=== PATIENT | male | born 1980 | race Caucasian/White ===

== ENCOUNTER → 2019-03-06 | Outpatient (CLI) | payer OTHER ==
[~2019-03-06] VITALS: Ht 185.4 cm; Wt 85.3 kg
[~2019-03-06] MED LIST: GADOBUTROL 7.5 MMOL/7.5 ML (GADAVIST) VIAL IV ONE; IOHEXOL 240 MGI/ML 20 ML (OMNIPAQUE) VIAL IV ONE
--- NOTE | 2019-03-06 15:00 | Diagnostic Imaging Report ---
Skull. Indication: Metal check for MRI. A single Flynn' view is obtained. There are no prior studies available for comparison. There is no radiopaque foreign body overlying the orbits. The sinuses are generally clear. The osseous structures are intact. Impression: There is no evidence for radiopaque foreign body overlying the orbits. Dictated by: Dictated on workstation # [id number]
--- NOTE | 2019-03-06 22:19 | Diagnostic Imaging Report ---
EXAMINATION: Magnetic resonance imaging of the right shoulder with intra-articular contrast. DATE: March 06, 2019. COMPARISON: Right shoulder arthrogram March 06, 2019. HISTORY: 38-year-old male, right shoulder pain, weakness, decreased range of motion. TECHNIQUE: Magnetic Resonance Imaging sequences were performed of the shoulder following the intra-articular administration of contrast. FINDINGS: ROTATOR CUFF, LIGAMENTS, TENDONS, AND MUSCLES: The supraspinatus, infraspinatus, teres minor, and subscapularis tendons and muscles are intact. There is normal rotator cuff muscle bulk and signal. LONG HEAD OF BICEPS: The biceps labral attachment and long head of the biceps tendon is intact. The long head of the biceps tendon is normally positioned within the bicipital groove. GLENOHUMERAL JOINT: The humeral head is well positioned relative to the glenoid. The labrum is intact. There is no identified paralabral cyst. The articular cartilage is grossly intact. There is no intra-articular body or prominent synovitis. The anterior and posterior bands of the inferior glenohumeral ligament complex are intact. ACROMIOCLAVICULAR JOINT: The acromioclavicular joint is normally aligned. The coracoclavicular and coracoacromial ligaments are intact. There are no degenerative changes of the acromioclavicular joint. BONE: The bones all have normal configuration. The bone marrow signal is within normal limits. Specifically, negative for fracture, osteomyelitis, osteonecrosis, or marrow replacing process. BURSAE AND SOFT TISSUES: The bursae and soft tissue surrounding the shoulder are unremarkable. IMPRESSION: 1. Intact labrum. Additional glenohumeral joint assessment is unremarkable. 2. Intact rotator cuff. 3. Intact acromioclavicular joint. 4. No acute fracture, bone contusion, or other bone marrow signal abnormality. Dictated by: Dictated on workstation # [id number]
--- NOTE | 2019-03-06 23:02 | Diagnostic Imaging Report ---
Right shoulder arthrogram. INDICATION: Shoulder pain. There are no prior studies available for comparison. TECHNIQUE: Following aseptic preparation of skin and administration of local anesthesia, a 21-gauge needle was advanced into the glenohumeral joint using fluoroscopic guidance. A 15 cc mixture of 10 cc of Omnipaque-240, 10 cc of saline and 0.2 of Gadavist was infused. 0.7 seconds of fluoroscopy time was utilized. The patient tolerated the procedure well and was dismissed in good condition. IMPRESSION: There is no successful injection of the glenohumeral joint. MRI is pending for further study. Dictated by: Dictated on workstation # [id number]
== END ==
LOC: RAD 11:58
PROVIDERS: ATTEND Nurse Practitioner
DX: Z03.89 Encounter for observation for other suspected diseases and conditions ruled out (principal); M25.551 Pain in right hip
CPT/HCPCS: 23350; 70250; 73040; 73222

== ENCOUNTER 2020-11-08 05:31 | Outpatient (RCR) | payer SELFPAY ==
[~2020-11-08] VITALS: Ht 185.4 cm; Wt 78.0 kg
[2020-11-12] MEDS ORDERED: DOCU-143 PO (08:41)
== END 2020-11-08 12:40 | disposition home or self-care (01) ==
LOC: PREOP 05:31
PROVIDERS: ATTEND Surgery
DX: Z01.812 Encounter for preprocedural laboratory examination (principal); K62.5 Hemorrhage of anus and rectum; Z20.822 Contact with and (suspected) exposure to COVID-19
CPT/HCPCS: 87635

== ENCOUNTER 2020-11-12 07:29 | Day surgery (SDC) | payer BC, OTHER ==
[2020-11-12] VITALS (7 sets, daily range): BP systolic 98–124; BP diastolic 56–90
[~2020-11-12] VITALS: Ht 185.5 cm; Wt 78.0 kg
[2020-11-12] MEDS ORDERED: LACTATED RINGERS 1,000 ML IV STA (07:30)
[2020-11-12] MEDS ORDERED: LACTATED RINGERS 1,000 ML IV ONE (07:40)
[2020-11-12] MEDS ORDERED: MIDAZOLAM 2 MG/2 ML (VERSED) VIAL ONE (07:45)
[2020-11-12] MEDS ORDERED: PROPOFOL INJECTION 50 ML IV ONE ×2 (07:45→08:20)
--- NOTE | 2020-11-12 08:13 | Progress Note-Pre Operative ---
Pre-Operative Progress Note H&P Reviewed The H&P was reviewed, patient examined and no changes noted. Date Seen by Provider: Nov 12, 2020 Time Seen by Provider: 08:12 Date H&P Reviewed: Nov 12, 2020 Time H&P Reviewed: 08:12 Pre-Operative Diagnosis: bright red blood per rectum NORMA HANDLEY DO Nov 12, 2020 08:13
--- NOTE | 2020-11-12 08:38 | Progress Note-Post Operative ---
Post-Operative Progess Note Surgeon (s)/Mine Technician (s) Surgeon NORMA HANDLEY DO Mine Technician: na Pre-Operative Diagnosis bright red blood per rectum Post-Operative Diagnosis posterior anal fissure Procedure & Operative Findings Date of Procedure 11/12/20 Procedure Performed/Findings colonoscopy Anesthesia Type per housekeeping room attendant Estimated Blood Loss Estimated blood loss (mL): none Specimens/Packing Specimens Removed na NORMA HANDLEY DO Nov 12, 2020 08:38
[2020-11-12] MEDS ORDERED: DOCU-143 PO (08:41)
--- NOTE | 2020-11-12 08:42 | Discharge Inst-Simple/Standard ---
Discharge Inst-Standard Discharge Medications New, Converted or Re-Newed RX: Other (Over the counter stool softener.) Patient Instructions/Follow Up Plan of Care/Instructions/FU: 2weeks Ivette Activity as Tolerated: Yes Discharge Diet: Regular Diet (high fiber) NORMA HANDLEY DO Nov 12, 2020 08:42
--- NOTE | 2020-11-12 12:00 | Anesthesia-General Post-Op ---
MAC Patient Condition Mental Status/LOC: Same as Preop Cardiovascular: Satisfactory Nausea/Vomiting: Absent Respiratory: Satisfactory Pain: Controlled Complications: Absent Post Op Complications Complications None Follow Up Care/Instructions Patient Instructions None needed. Anesthesiology Discharge Order Discharge Order Patient is doing well, no complaints, stable vital signs, no apparent adverse anesthesia problems. No complications reported per nursing. SELENE LOWERY CRNA Nov 12, 2020 12:00
--- NOTE | 2020-11-12 12:22 | OPERATIVE REPORT ---
DATE OF SERVICE: 11/12/2020 PREOPERATIVE DIAGNOSIS: Bright red blood per rectum. POSTOPERATIVE DIAGNOSIS: Posterior anal fissure. PROCEDURE: Colonoscopy. SURGEON: Norma Steele DO ANESTHESIA: Per [place]. ESTIMATED BLOOD LOSS: None. COMPLICATIONS: None. INDICATIONS: The patient is a 40-year-old male who has been having bright red blood per rectum. His primary care provider wished him to have a colonoscopy. The patient was discussed risks and benefits of procedure and wished to proceed with procedure. Consent was signed in the chart. DESCRIPTION OF PROCEDURE: The patient was taken to the endoscopy suite, placed in left lateral recumbent position. Timeout was performed. Digital rectal exam was performed. A posterior anal fissure noted. No active bleeding. It was very shallow. Healing. No polyps, masses or any other ulcerations. Scope was inserted in the rectum and advanced all the way to cecum with minimal difficulty. Prep was adequate. Scope was then slowly retracted back. There were no polyps, masses or ulcerations within the cecum, ascending, transverse, descending and sigmoid colon. Once in the rectum, scope was retroflexed noting no other pathology. Scope was returned to its normal position, slowly withdrawn until completely removed. The patient tolerated procedure well without any complications, taken to recovery room in stable condition. RECOMMENDATIONS: The patient started on Colace 100 mg daily. Keep stools soft, increase water, increase fiber. The patient will follow up in two weeks for reexamination. Job ID: [id number] DocumentID: [id number] Dictated Date: 11/12/2020 08:45:13 Coal Trimmer Date: 11/12/2020 12:21:29 Dictated By: NORMA STEEEL DO
== END 2020-11-12 09:55 | disposition home or self-care (01) ==
LOC: ENDO 07:29
PROVIDERS: ATTEND Surgery
DX: K60.2 Anal fissure, unspecified (principal); F17.210 Nicotine dependence, cigarettes, uncomplicated; Z79.899 Other long term (current) drug therapy; Z83.3 Family history of diabetes mellitus; Z82.3 Family history of stroke; Z80.9 Family history of malignant neoplasm, unspecified

== ENCOUNTER 2021-02-08 07:33 | Emergency (ER) | payer BC ==
[~2021-02-08] VITALS: Ht 185.4 cm; Wt 78.1 kg
[~2021-02-08 07:33] MED LIST changes: +DOCU-143 PO; -GADOBUTROL 7.5 MMOL/7.5 ML (GADAVIST) VIAL IV ONE; -IOHEXOL 240 MGI/ML 20 ML (OMNIPAQUE) VIAL IV ONE
[2021-02-08] MEDS ORDERED: KETOROLAC 60 MG/2 ML VIAL IM ONE (09:00)
--- NOTE | 2021-02-08 09:01 | ED Lower Extremity ---
General Chief Complaint: Lower Extremity Stated Complaint: KNEE PAIN Nursing Triage Note: AMB TO ED WITH C/O KNEE PAIN HAS CHRONIC KNEE PAIN BENT DOWN AND FELT POP TODAY HAS NOT TAKEN PAIN MEDS Nursing Sepsis Screen: No Definite Risk Source: patient Exam Limitations: no limitations (LISSY BOWMAN) History of Present Illness Date Seen by Provider: February 08, 2021 Time Seen by Provider: 08:35 Initial Comments Pt presents to ED via private conveyance with complaints of R knee pain. He states it has been chronic since his 20's but has been getting worse over the past 9months until this morning at work, where he was standing up and his knee gave out. Complains of 7/10 pain around his whole knee, with worse pain/tenderness around the patella, anterior/posterior/medial parts of the knee. Significant family history on his mothers side; mother with 2x total knee replacements, 29yo sister with a single total knee replacement. Only able to bear a small amount of weight and walks with a limp. R knee with mild joint effusion, anterior laxity, exquisite tenderness to palpation/manipulation of the patella and anterior/posterior ligaments. Denies other symptoms of chest pain, SOB, N/V, fevers, chills. Location Injury Occurred: Work Onset: this morning Severity: severe Pain/Injury Location: right knee Method of Injury: other (while standing up from sitting, atraumatic) Modifying Factors: Improves With Movement (pain worse with movement and weight bearing), Improves With Pain Medication (Ibuprofen with minimal relief, did not take any today) (LISSY BOWMAN) Allergies and Home Medications Allergies Coded Allergies: No Known Drug Allergies (Unverified , 11/07/20) Home Medications Docusate Sodium 100 Mg Capsule, 100 MG PO DAILY Prescribed by: NORMA HANDLEY on 11/12/20 0841 Patient Home Medication List Home Medication List Reviewed: Yes (LISSY BOWMAN) Home Medication List Reviewed: Yes (MARITZA GUERRA) Review of Systems Constitutional: No chills, No fever EENTM: No hearing loss, No vision loss Respiratory: No cough, No short of breath Cardiovascular: No chest pain, No edema, No palpitations Gastrointestinal: No abdominal pain, No constipation, No diarrhea, No nausea, No vomiting Genitourinary: No dysuria, No frequency, No hematuria Musculoskeletal: No back pain; joint pain (severe 7/10 R knee), joint swelling (mild R knee) Skin: No change in color, No lesions, No rash Psychiatric/Neurological: Denies Headache; Numbness (dulled sensation to RLE); Denies Paresthesia, Denies Tingling (COLBYLISSY Chat Sports STUDENT) All Other Systems Reviewed Negative Unless Noted: Yes (COLBY,LISSY Chat Sports STUDENT) Past Pfxthfc-Hoywle-Qevghw Hx Patient Social History Alcohol Use: Occasionally Uses Number of Drinks Today: AA Alcohol Beverage of Choice: Rum Smoking Status: Current Everyday Smoker Type Used: Cigarettes (1/2 ppd, 25years) 2nd Hand Smoke Exposure: Yes Recent Infectious Disease Expo: No Recent Hopitalizations: No (COLBY,LISSY Chat Sports STUDENT) Seasonal Allergies Seasonal Allergies: No (COLBY,LISSY Chat Sports STUDENT) Past Medical History Surgeries: Yes Appendectomy Respiratory: Yes (SNORES) Cardiac: Yes Hypertension Neurological: Yes Concussion Genitourinary: No Gastrointestinal: No Musculoskeletal: No Endocrine: No HEENT: No Cancer: No Psychosocial: Yes Anxiety, Depression Integumentary: No Blood Disorders: No (COLBYLISSY Chat Sports STUDENT) Physical Exam Vital Signs Vital Signs - First Documented 02/08/21 07:50 Temp 37.1 Pulse 75 Resp 18 B/P (MAP) 115/73 (87) Pulse Ox 98 (MARI,MARITZA J) Vital Signs Capillary Refill : Less Than 3 Seconds (COLBYLISSY Chat Sports STUDENT) Height, Weight, BMI Height: 6'1.00" Weight: 188lbs. 0.0oz. 85.112879gi; 22.00 BMI Method: General Appearance: WD/WN, no apparent distress HEENT: PERRL/EOMI, normal ENT inspection Neck: non-tender, full range of motion, supple, normal inspection Cardiovascular: normal peripheral pulses, regular rate, rhythm, no edema, no murmur Respiratory: chest non-tender, lungs clear, normal breath sounds, no respiratory distress, no accessory muscle use Gastrointestinal: normal bowel sounds, non tender, soft Back: normal inspection, no CVA tenderness, no vertebral tenderness Hips: bilateral hip non-tender, bilateral hip normal inspection, bilateral hip normal range of motion, bilateral hip no evidence of injury Legs: bilateral leg non-tender, bilateral leg normal inspection, bilateral leg no evidence of injury Knees: right knee bone tenderness, right knee joint effusion (mild), right knee pain, right knee soft tissue tenderness Feet: bilateral foot non-tender, bilateral foot normal inspection, bilateral foot normal range of motion, bilateral foot no evidence of injury Reflexes: 2+ knee (R), 2+ knee (L); 1+ ankle (R), 1+ ankle (L) Neurologic/Tendon: normal motor functions, normal tendon functions, responds to pain, sensory deficit (numbness RLE), withdraws to pain Neurologic/Psychiatric: alert, normal mood/affect, oriented x 3 Skin: normal color, warm/dry Lymphatic: no adenopathy (LISSY BOWMAN MED STUDENT) Knees: right knee other (Laxity in his anterior drawer test as well as tenderness on loading the medial collateral ligament. There is a scant amount of joint effusion and significant tenderness to palpation of the right knee.) (MARITZA GUERRA) Procedures/Interventions Progress Right knee joint injection/aspiration. We are unable to aspirate anything from the joint space. Using a 25-gauge 1-1/2 inch needle and standard anterior medial approach we obtained access to the right knee joint space. The site was precleaned with iodine and chlorhexidine. We then infiltrated with 1 cc of 1% lidocaine, 1 cc of half percent Marcaine and 1 cc of Depo-Medrol 40 mg/mL. Patient tolerated the procedure well. A bandage was applied sterilely and no bleeding was noted. (MARITZA GUERRA) Progress/Results/Core Measures Results/Orders My Orders Orders - MARITZA GUERRA Ketorolac Injection (Toradol Injection) (02/08/21 09:00) Knee, Right, 3 Views (02/08/21 08:52) Lidocaine 1% Inj 20 Ml (Xylocaine 1% Inj (02/08/21 09:45) Bupivacaine 0.5% Injection (Sensorcaine (02/08/21 09:45) Methylprednisolone Acetate Inj (Depo-Med (02/08/21 09:45) (MARITZA GUERRA) Medications Given in ED Current Medications Medications Dose Ordered Sig/Guero Route Start Time Stop Time Status Last Admin Dose Admin Bupivacaine HCl 30 ml ONCE ONCE INJ 02/08/21 09:45 02/08/21 09:46 DC 02/08/21 09:58 30 ML Ketorolac Tromethamine 60 mg ONCE ONCE IM 02/08/21 09:00 02/08/21 09:01 DC 02/08/21 09:08 60 MG Lidocaine HCl 20 ml ONCE ONCE INJ 02/08/21 09:45 02/08/21 09:46 DC 02/08/21 09:57 20 ML Methylprednisolone Acetate 40 mg ONCE ONCE IA 02/08/21 09:45 02/08/21 09:46 DC 02/08/21 09:53 40 MG (MARITZA GUERRA) Vital Signs/I&O 02/08/21 07:50 Temp 37.1 Pulse 75 Resp 18 B/P (MAP) 115/73 (87) Pulse Ox 98 (MARITZA GUERRA) Blood Pressure Mean: 87 Progress Progress Note : Time: 09:26 Progress Note Toradol IM. We will do a joint aspiration if we get some fluid out and put in some steroid and lidocaine/ropivacaine. (MARITZA GUERRA) Diagnostic Imaging Diagonstic Imaging: Xray Plain Films/CT/US/NM/MRI: knee (r) Comments NAME: [facility] REC#: [id number] PT STATUS: REG ER : 1980 PHYSICIAN: MARITZA GUERRA MD ADMIT DATE: 02/08/21/ER Draft Date of Exam:02/08/21 KNEE, RIGHT, 3 VIEWS INDICATION: Knee pain FINDINGS: Three view right knee showed no fracture, dislocation or acute articular irregularity. No loose body. IMPRESSION: No acute appearing abnormality. Dictated on workstation # [id number] Dict: 02/08/21907 Trans: 02/08/21912 [facility] [id number] Interpreted by: WENDY WAGNER Electronically signed by: Reviewed: Reviewed by Me (MARITZA GUERRA) Departure Impression Primary Impression: Right knee pain Qualified Codes: M25.561 - Pain in right knee Disposition: 01 HOME, SELF-CARE Condition: Stable Departure-Patient Inst. Decision time for Depature: 10:00 (MARITZA GUERRA) Referrals: GARCÍA URIAS MD (PCP/Family) Primary Care Physician SY ERIC MD Patient Instructions: Knee Pain (DC) Add. Discharge Instructions: I suspect you may have ligamentous injury to your knee. Further work-up can be done through Dr. Eric's office. Physical therapy may be helpful. If you like to start on physical therapy you may call them and schedule appointment by calling [phone]. Compression wrap such as a neoprene knee sleeve or Tahir wrap can be helpful for pain. Keep the leg elevated and apply alternating ice and heat for the next couple days then just heat. Topical creams such as icy hot or Biofreeze can be helpful. Tylenol 1000 mg every 8 hours as necessary for pain. I suggest you use Aleve 2 tablets twice a day for the next 2 weeks on a scheduled basis to reduce inflammation and therefore pain in your knee. Alternatively instead of Aleve you could use ibuprofen 4 tablets 3 times a day for [address] ERIC for a follow-up appointment. The steroid should kick in in the next 12 to 24 hours and may have side effects of causing you to feel a little bit wired, full of energy and sometimes difficult to get sleep at night. The steroid should last about 5 to 7 days. All discharge instructions reviewed with patient and/or family. Voiced understanding. Work/School Note: Work Release Form Date Seen in the Emergency Department: February 08, 2021 Return to Work: February 10, 2021 Restrictions: Need Release from Doctor Other Restrictions Listed Below: No lifting greater than 40 pounds until 02/22/2021. Copy Copies To 1: SY ERIC MD, JOHNNY MED STUDENT February 08, 2021 09:01 MARITZA GUERRA February 08, 2021 09:30
--- NOTE | 2021-02-08 09:13 | Diagnostic Imaging Report ---
INDICATION: Knee pain FINDINGS: Three view right knee showed no fracture, dislocation or acute articular irregularity. No loose body. IMPRESSION: No acute appearing abnormality. Dictated by: Dictated on workstation # [id number]
[2021-02-08] MEDS ORDERED: LIDOCAINE 1% INJ 20 ML 20 ML VIAL INJ ONE (09:45)
[2021-02-08] MEDS ORDERED: BUPIVACAINE 0.5% 30 ML (SENSORCAINE) VIAL INJ ONE (09:45)
[2021-02-08] MEDS ORDERED: methylPREDNISolone 40 MG/ML (DEPO MEDROL) VIAL IA ONE (09:45)
[2021-02-08 10:18] VITALS: BP 115/73
== END 2021-02-08 10:18 | disposition home or self-care (01) ==
LOC: EDUNIT# 07:33 → ER 07:34
DX: M25.561 Pain in right knee (principal); I10 Essential (primary) hypertension; F17.210 Nicotine dependence, cigarettes, uncomplicated; Z87.820 Personal history of traumatic brain injury
CPT/HCPCS: 73562

== ENCOUNTER 2021-02-20 07:06 | Outpatient (CLI) | payer BC ==
[~2021-02-20] VITALS: Ht 185.5 cm; Wt 77.3 kg
[2021-02-20] MEDS ORDERED: TRAM50TA3 PO (11:10)
[2021-02-20] MEDS ORDERED: NAPR500T8 PO (11:10)
== END 2021-02-20 11:34 | disposition home or self-care (01) ==
LOC: PREOP 07:06
PROVIDERS: ATTEND Orthopaedic Surgery
DX: Z01.818 Encounter for other preprocedural examination (principal)

== ENCOUNTER 2021-02-26 09:01 | Day surgery (SDC) | payer BC ==
--- NOTE | 2021-02-20 11:39 | HISTORY AND PHYSICAL ---
DATE OF SERVICE: ADMISSION HISTORY AND PHYSICAL This will be for outpatient surgery on 02/26/2021 for right knee arthroscopy. HISTORY OF PRESENT ILLNESS: The patient is a 40-year-old gentleman with a several year history of right knee pain. He reports painful popping and catching symptoms as well as periodic swelling. He injured his knee recently when he was arising from a squatted position and had a loud painful pop followed by several smaller popping sensation. Since that time, he has had increased pain, swelling and popping. He has undergone treatment with injections with no improvement. Due to functional impairment and failure to improve with conservative measures, the patient elected to proceed with surgical intervention. REVIEW OF SYSTEMS: No chest pain, no shortness of breath, no dysuria. PAST MEDICAL HISTORY: Mitral valve prolapse, hypertension, coronary valve disease, arthritis. PAST SURGICAL HISTORY: Appendectomy, wisdom tooth extraction. FAMILY HISTORY: Cardiovascular disease, thyroid disorder. PRIMARY CARE PROVIDER: Dr. Do. MEDICATIONS: Aleve, Medrol Dosepak and gabapentin. ALLERGIES: No known drug allergies. SOCIAL HISTORY: The patient smokes half a pack of cigarettes a day. Drinks alcohol rarely. RADIOGRAPHS: Reveal no acute changes of the right knee. PHYSICAL EXAMINATION: GENERAL: The patient is well-developed, well-nourished, in no acute distress. HEENT: Normocephalic, atraumatic. Pupils are equal, round and reactive to light. Oropharynx is clear. NECK: Supple, with no lymphadenopathy. LUNGS: Clear to auscultation bilaterally. HEART: Regular rate and rhythm. ABDOMEN: Soft, nontender, nondistended. EXTREMITIES: The right knee demonstrates marked patellofemoral crepitus and pain with patellar loading. Range of motion is 0/0/135. Negative Gilles, negative anterior and posterior drawer. No varus or valgus laxity. Tenderness along his medial joint line and pain medially with Adela's with an audible click noted. IMPRESSION: Right knee medial meniscus tear with associated chondromalacia. PLAN: Right knee arthroscopy, partial medial meniscectomy and chondroplasty. The risks, benefits, options, ramifications and recovery were discussed at length with the patient. He understands and wishes to proceed. Job ID: [id number] DocumentID: [id number] Dictated Date: 02/20/2021 11:03:45 Drivers License Examiner Date: 02/20/2021 11:39:00 Dictated By: SY WHITE MD
[2021-02-26] VITALS (11 sets, daily range): BP systolic 111–140; BP diastolic 70–100
[~2021-02-26] VITALS: Ht 185.5 cm; Wt 77.3 kg
[~2021-02-26 09:01] MED LIST changes: +HYDROcodone/APAP 7.5 MG/325 MG (LORTAB, LORCET PLUS) TABLET PO PRN; +NAPR500T8 PO; +TRAM50TA3 PO
--- NOTE | 2021-02-26 09:12 | Progress Note-Pre Operative ---
Pre-Operative Progress Note H&P Reviewed The H&P was reviewed, patient examined and no changes noted. Date Seen by Provider: Feb 26, 2021 Time Seen by Provider: 09:12 Date H&P Reviewed: Feb 26, 2021 Time H&P Reviewed: 09:12 Pre-Operative Diagnosis: right knee medial meniscus tear and chondromalacia SY WHITE MD Feb 26, 2021 09:12
--- NOTE | 2021-02-26 09:13 | Progress Note-Post Operative ---
Post-Operative Progess Note Surgeon (s)/Pork Cutlet Maker (s) Surgeon SY WHITE MD Pork Cutlet Maker: Sandip Chiang Pre-Operative Diagnosis right knee medial meniscus tear and chondromalacia Post-Operative Diagnosis right knee medial meniscus tear and chondromalacia of the patella and medial femoral condyle Procedure & Operative Findings Date of Procedure 02/26/21 Procedure Performed/Findings right knee arthroscopic partial medial meniscectomy and chondroplasty of the patella and medial femoral condyle Anesthesia Type GETA Estimated Blood Loss Estimated blood loss (mL): minimal Specimens/Packing Specimens Removed none Packing: none SY WHITE MD Feb 26, 2021 09:13
[2021-02-26] MEDS ORDERED: LACTATED RINGERS 1,000 ML IV PRN (09:15)
[2021-02-26] MEDS ORDERED: ceFAZolin INJECTION 1,000 MG in WATER (STERILE) FOR INJECTION 10 ML IV ONE (09:15)
[2021-02-26] MEDS ORDERED: fentaNYL INJ 100 MCG/2 ML AMP ONE (09:34)
[2021-02-26] MEDS ORDERED: proPOfol 200 MG/20 ML (DIPRIVAN) VIAL IV ONE (09:34)
[2021-02-26] MEDS ORDERED: ONDANSETRON 4 MG/2 ML (SDV) Z0FRAN ONE (09:34)
[2021-02-26] MEDS ORDERED: MIDAZOLAM 2 MG/2 ML (VERSED) VIAL ONE (09:34)
[2021-02-26] MEDS ORDERED: LIDOCAINE PF 2% 5 ML (XYLOCAINE) VIAL ONE (09:34)
[2021-02-26] MEDS ORDERED: BUPIVACAINE 0.25% 30 ML (SENSORCAINE) VIAL ONE (09:36)
[2021-02-26] MEDS ORDERED: morphine PF (DURAMORPH) 10 MG/10 ML AMP ONE (09:36)
[2021-02-26] MEDS ORDERED: SEVOFLURANE (ULTANE) 15 ML INHAL SOLN ONE (10:55)
[2021-02-26] MEDS ORDERED: morphine INJ 10 MG/ML 1ML (SYR OR VIAL) IVP ONE (11:15)
[2021-02-26] MEDS ORDERED: ONDANSETRON 4 MG/2 ML (SDV) Z0FRAN IVP PRN (11:15)
[2021-02-26] MEDS ORDERED: PROMETHAZINE INJ 25 MG/ML (PHENERGAN) AMP IVP ONE (11:15)
[2021-02-26] MEDS ORDERED: HYDROmorphone 2 MG/ML VIAL (DILAUDID) IV ONE (11:15)
[2021-02-26] MEDS ORDERED: MEPERIDINE (DEMEROL) INJ 50 MG/ML IVP ONE (11:15)
--- NOTE | 2021-02-26 12:23 | Anesthesia-General Post-Op ---
General Patient Condition Mental Status/LOC: Same as Preop Cardiovascular: Satisfactory Nausea/Vomiting: Absent Respiratory: Satisfactory Pain: Controlled Complications: Absent Post Op Complications Complications None Follow Up Care/Instructions Patient Instructions None needed. Anesthesia/Patient Condition Patient Condition Patient is doing well, no complaints, stable vital signs, no apparent adverse anesthesia problems. No complications reported per nursing. PERNELL COX CRNA Feb 26, 2021 12:23
--- NOTE | 2021-02-26 12:36 | Physical Therapy Ortho Eval ---
PT Orthopedic Evaluation Type of Surgery Knee Scope (right) Prior Level of Function Current Living Status: Significant Other Locomotion (Upon Admit): Independent Established Durable Medical Eq: Crutches Subjective Subjective Agrees to PT. Post visit, reports he feels like he can do the exercises and use the crutches safely. Entry Into Home: Stairs With Railing Steps Into Home: 2 Motor Control Motor Control: Motor Control WNL ROM ROM: WFL Strength Strength: WFL Transfer SCALE: Activities may be completed with or without assistive devices. 7-Tszpleupze-uexunsi completes the activity by him/herself with no assistance from a helper. 5-Set-up or Clean-up Assistance-helper sets up or cleans up; patient completes activity. [place] assists only prior to or following the activity. 4-Supervision or Touching Assistance-helper provides verbal cues and/or touching/steadying and/or contact guard assistance as patient completes activity. Assistance may be provided throughout the activity or intermittently. 3-Partial/Moderate Assistance-helper does LESS THAN HALF the effort. [place] lifts, holds or supports trunk or limbs, but provides less than half the effort. 2-Substantial/Maximal Assistance-helper does MORE THAN HALF the effort. [place] lifts or holds trunk or limbs and provides more than half the effort. 2-Koyqfcubk-tvpqkl does ALL the effort. Patient does none of the effort to complete the activity. Or, the assistance of 2 or more helpers is required for the patient to complete the activity. If activity was not attempted, code reason: 7-Patient Refused. 9-Not Applicable-not attempted and the patient did not perform the activity before the current illness, exacerbation or injury. 10-Not Attempted due to Environmental Limitations-(lack of equipment, weather restraints, etc.). 88-Not Attempted due to Medical Conditions or Safety Concerns. Transfers (B, C, W/C) (QC): 4 (6 post visit) Gait Gait Assistive Device: Crutches Right Lower Extremity: Right Weight Bearing Status RLE: Weight Bearing/Tolerated Left Lower Extremity: Left Weight Bearing Status LLE: Full Weight Bearing Gait (QC): 4 (pt was mod indep post treatement. ) Distance (QC): 3=150 ft Distance: 150 ft Summary/Comments Gait training with B crutches on level surfaces; training on steps; education on WB status and progression to one crutch. Treatment Rendered Treatment: Therapeutic Exercises, Gait Train, Step Train Exercise Instruction: Quad Sets, Straight Leg Raise, Heel Slides Assessment/Goals Goal Time Frame: 1 Visit Plan Treatment Plan: Discharge Time Time In: 1210 Time Out: 1235 Total Billed Treatment Time: 25 Billed Treatment Time visit EVL 25 MICHELLE SEE PT Feb 26, 2021 12:36
[2021-02-26] MEDS ORDERED: HYDR-3817 PO (13:22)
--- NOTE | 2021-02-26 15:07 | OPERATIVE REPORT ---
DATE OF SERVICE: 02/26/2021 PREOPERATIVE DIAGNOSES: 1. Right knee medial meniscus tear. 2. Right knee chondromalacia of the patella. POSTOPERATIVE DIAGNOSES: 1. Right knee medial meniscus tear. 2. Right knee chondromalacia of the patella. 3. Right knee chondromalacia of the medial femoral condyle. PROCEDURES PERFORMED: 1. Right knee arthroscopic partial medial meniscectomy. 2. Right knee arthroscopic chondroplasty of the medial femoral condyle. 3. Right knee arthroscopic chondroplasty of the patella. SURGEON: Richard Eric MD. LOG MANAGER: Sandip Chiang, who assisted throughout the procedure and closed the incisions. ANESTHESIA: General endotracheal by Otto Rod CRNA. TOURNIQUET TIME: Not applicable. ESTIMATED BLOOD LOSS: Minimal. DRAINS: None. COMPLICATIONS: None. POSTOPERATIVE PLAN: Routine arthroscopy protocol. The patient was transferred to the recovery room awake and in stable condition. STATEMENT OF MEDICAL NECESSITY: The patient is a 40-year-old gentleman with complaints of right knee pain, catching, locking and swelling and an MRI revealed a medial meniscus tear as well as chondromalacia of his patella. He tried rest, activity modifications, and anti-inflammatories without relief and due to functional impairment and failure to improve with conservative measures, the patient elected to proceed with surgical intervention. Examination under anesthesia revealed range of motion of 0/0/135 with the negative Gilles, negative anterior and posterior drawer. No varus or valgus laxity and negative pivot shift. ARTHROSCOPIC FINDINGS: The patella demonstrated grade II chondral flaps inferiorly in a 5 x 5 area. The trochlea demonstrated no gross chondral abnormalities. The medial and lateral gutters were clear. The ACL and PCL were intact. Lateral compartment demonstrated no significant meniscal or chondral pathology. The medial compartment demonstrated complex tear of the posterior horn and body of the medial meniscus involving approximately one-third of the posterior horn and body. In addition, there were grade II chondral flaps over the anterior portion of femoral condyle in a 15 x 10 area. PROCEDURE IN DETAIL: After risks and benefits of the procedure were discussed and questions were answered, informed consent was signed and placed on the chart. The operative site was confirmed in the preoperative holding area initialed by the surgeon. The patient was then transferred to the operating room and after adequate levels of general endotracheal anesthetic were obtained, a timeout was called, confirming the operative site and examination under anesthesia was performed with the above findings noted. The right lower extremity was prepped and draped in the usual sterile fashion. The knee joint was injected with 60 mL fluid and standard inferolateral portal was placed with our arthroscope under direct visualization, inferior medial portal was created. The menisci and cruciates were carefully probed with the above findings noted. The unstable chondral flaps on the patella were debrided with a shaver back to a stable edge. The scope was then redirected into the medial compartment. The unstable chondral flaps in the medial femoral condyle were debrided with a shaver back to a stable edge and the posterior horn and body of the medial meniscus were debrided with a biter and shaver back to a stable edge. This was carefully probed with no further tearing or instability noted. The knee was copiously irrigated and the portal sites were closed with 4-0 nylon in simple interrupted fashion. The knee joint was injected with Duramorph. The port sites were infiltrated with plain Marcaine. A soft dressing was applied and the patient was transferred to the recovery room awake and in stable condition. Job ID: [id number] DocumentID: [id number] Dictated Date: 02/26/2021 11:10:19 Scrap Crusher Date: 02/26/2021 15:06:00 Dictated By: RICHARD ERIC MD
== END 2021-02-26 13:35 | disposition home or self-care (01) ==
LOC: SDC 09:01
PROVIDERS: ATTEND Orthopaedic Surgery
DX: S83.241A Other tear of medial meniscus, current injury, right knee, initial encounter (principal); M22.41 Chondromalacia patellae, right knee; I10 Essential (primary) hypertension; F41.9 Anxiety disorder, unspecified; M19.90 Unspecified osteoarthritis, unspecified site; F17.210 Nicotine dependence, cigarettes, uncomplicated; Z79.891 Long term (current) use of opiate analgesic; Z79.899 Other long term (current) drug therapy; Z79.1 Long term (current) use of non-steroidal anti-inflammatories (NSAID); Z87.448 Personal history of other diseases of urinary system; Z86.79 Personal history of other diseases of the circulatory system
CPT/HCPCS: 87081